=== PATIENT | female | born 1990 | race Caucasian/White ===

== ENCOUNTER → 2018-12-22 | Emergency (ER) | payer OTHER ==
[2018-12-22 16:13] LABS: URINE BLOOD (Dip) POC Negative (NEGATIVE); URINE GLUCOSE (Dip) POC Negative (NEGATIVE); URINE KETONES (Dip) POC Negative (NEGATIVE); URINE LEUKOCYTE EST (Dip) POC Negative (NEGATIVE); URINE NITRITE (Dip) POC Negative (NEGATIVE); URINE TOTAL PROTEIN POC Negative (NEGATIVE)
[2018-12-22 16:13] LABS: URINE PH (Dip) POC 6.5 (5.0-8.5)
[2018-12-22] MEDS: KETOROLAC 30 MG INJ IM (16:17)
== END | disposition home or self-care (01) ==
LOC: FTE 14:43
DX: M54.5 Low back pain (principal)
CPT/HCPCS: 81003; 81025; 96372; 99284-25